=== PATIENT | male | born 1960 | race Caucasian/White ===

== ENCOUNTER 2018-03-07 14:58 | Emergency (ER) | payer MEDICAID ==
--- NOTE | 2018-03-07 15:30 | Emergency Department Record ---
History of Present Illness - General Chief Complaint: Difficulty Breathing Stated Complaint: THINKS HE HAS PNEUMONIA Time Seen by Provider: 03/07/18 15:16 Source: Patient Mode of Arrival: Ambulatory Limitations: No limitations - History of Present Illness Initial Comments: The patient is here due to R upper back and shoulder pain for 4-5 days. The pain is sharp and stabbing and is worse with ROM of the R shoulder. He denies any fever, cough, CP, SOB, or sputum production. The patient also denies any trauma or injury. The pain intermittently radiates from the trapezius area down the back of the R arm. There is no numbness in a glove distribution and there is no arm weakness. Onset/Timin -: Days(s) Radiation: Back Severity: Severe Severity scale (1-10): 8 Quality: Aching, Stabbing Consistency: Constant Associated Symptoms: Other Treatments Prior to Arrival: None - Related Data Home Oxygen Therapy: No Previous Rx's Medication Instructions Recorded Methylprednisolone [Medrol Dose 4 mg PO DAILY #15 tab.ds.pk 03/07/18 Pack] Methylprednisolone [Medrol Dose 4 mg PO DAILY 6 Days tab.ds.pk 03/07/18 Pack] Naproxen [Naprosyn] 500 mg PO BID #14 tablet. 03/07/18 Allergies Allergy/AdvReac Type Severity Reaction Status Date / Time No Known Drug Allergies Allergy Verified 03/07/18 15:14 Travel Screening - Travel/Exposure Within Last 30 Days Have you traveled within the last 30 days?: No - Additonal Travel Details Have you been exposed to anyone with a communicable illness?: No - Travel Symptoms Symptom Screening: None Review of Systems Constitutional: Denies: Chills, Fever Eyes: Denies: Eye discharge ENT: Denies: Congestion Respiratory: Denies: Cough, Dyspnea Past Medical History - SOCIAL HISTORY Smoking Status: Current every day smoker Alcohol Use: None Drug Use: Occasional Drug Use Detail:: Marijuana - RESPIRATORY Hx Respiratory Disorders: No - CARDIOVASCULAR Hx Cardio Disorders: No - NEURO Hx Neuro Disorders: No - GI Hx GI Disorders: No - Hx Genitourinary Disorders: Yes Hx Kidney Stones: Yes - ENDOCRINE Hx Endocrine Disorders: No - MUSCULOSKELETAL Hx Musculoskeletal Disorders: No - PSYCH Hx Psych Problems: No - HEMATOLOGY/ONCOLOGY Hx Hematology/Oncology Disorders: No Family Medical History Any Significant Family History?: No Physical Exam - General General Appearance: Alert, Oriented x3, Cooperative, No acute distress - Head Head exam: Atraumatic, Normocephalic, Normal inspection - Eye Eye exam: Normal appearance, PERRL - Neck Neck exam: Normal inspection, Full ROM. negative: Tenderness - Respiratory Respiratory exam: Normal lung sounds bilaterally. negative: Chest wall tenderness, Decreased breath sounds, Rales, Respiratory distress, Rhonchi, Wheezes - Cardiovascular Cardiovascular Exam: Regular rate, Normal rhythm, Normal heart sounds - GI/Abdominal GI/Abdominal exam: Soft, Normal bowel sounds. negative: Tenderness - Extremities Extremities exam: Normal inspection, Full ROM (There is reproducible pain with ROM of the R shoulder. The pain also does radiate down the back of the R arm. The patient also is feeling slight paresthesias at times over the posterior R arm and forearm.), Normal capillary refill. negative: Joint swelling, Tenderness - Back Back exam: Reports: Normal inspection. Denies: Paraspinal tenderness, Vertebral tenderness - Neurological Neurological exam: Alert, Motor sensory deficit (The motor exam to the R arm is 5/5 in all groups. The patient does have slight decreased sensation over the posterior R arm and forearm only. ), Normal gait, Oriented X3, Other (The R arm has normal pulses. He does have a neg Drift and Rhomberg exams.). negative: Abnormal gait, Altered Course Vital Signs 03/07/18 15:05 Pulse Rate 72 Respiratory 18 Rate Blood Pressure 120/86 Pulse Ox 94 L - Reevaluation(s) Reevaluation #1: I did discuss the lab and xray results with the patient. He is to take Naprosyn and a Medrol dose pack for pain and see a family doctor in 4-5 days for recheck. 03/07/18 16:27 03/07/18 16:42 Medical Decision Making - Data Complexity MDM Data: Labs Ordered and/or Reviewed, X-Ray Ordered and/or Reviewed - Lab Data Result diagrams: 03/07/18 15:39 03/07/18 15:39 - Radiology Data Radiology results: Report reviewed (CXR: Neg for any acute changes.) Disposition Disposition: Discharge Clinical Impression: Shoulder pain, right Qualifiers: Chronicity: acute Qualified Code(s): M25.511 - Pain in right shoulder Disposition: Home, Self-Care Condition: (2) Stable Instructions: Shoulder Pain (ED) Additional Instructions: Please take the Naprosyn and the Medrol dose pack for pain and try to limit the use of your R arm for 5 days. Please follow up with a family doctor for recheck in 4-5 days. Return to the ER for any worsening symptoms. Prescriptions: Methylprednisolone [Medrol Dose Pack] 4 mg PO DAILY 6 Days tab.ds.pk Methylprednisolone [Medrol Dose Pack] 4 mg PO DAILY #15 tab.ds.pk Naproxen [Naprosyn] 500 mg PO BID #14 tablet.dr Forms: Patient Portal Access Time of Disposition: 16:29 Quality - Quality Measures Quality Measures: N/A - Blood Pressure Screening View Details: Yes Does Patient Have Any of the Following: No Blood Pressure Classification: Pre-Hypertensive BP Reading Systolic Measurement: 133 Diastolic Measurement: 87 Screening for High Blood Pressure: < Pre-Hypertensive BP, F/U Documented > [ [id number]] Pre-Hypertensive Follow-up Interventions: Referral to alternative/primary care provider.
[2018-03-07 15:54] LABS: BASO % 0.4 % (0-6); EOS % 1.1 % (0-6); GRAN % 57.1 % (47-80); LYMPH % 32.9 % (16-45); MEAN CORPUSCULAR HEMOGLOBIN 30.6 pg (27-33); MEAN CORPUSCULAR HGB CONC 35.6 g/dl (32-36); MEAN PLATELET VOLUME 8.4 fl (7.4-10.4); MONO % 8.5 % (0-9); PLATELET COUNT 496 K/uL (130-400); RED BLOOD COUNT 5.23 M/uL (4.40-5.70); RED CELL DISTRIBUTION WIDTH 13.2 % (11.5-14.5)
[2018-03-07 16:04] LABS: BLOOD UREA NITROGEN 14 mg/dL (6-20); CREATININE 0.8 mg/dL (0.7-1.2); EST GLOMERULAR FILTRATION RATE > 60 mL/min
[2018-03-07 16:05] LABS: TOTAL PROTEIN 6.8 g/dL (6.6-8.7)
[2018-03-07 16:07] LABS: GLUCOSE,RANDOM 128 mg/dL (74-109)
[2018-03-07 16:10] LABS: ALB/GLOB RATIO 1.3 (1.1-1.8); ALBUMIN 3.9 g/dL (4.0-5.0); ALKALINE PHOSPHATASE 36 U/L (40-129); ALT/SGPT 24 U/L (<41); AST/SGOT 25 U/L (10.0-50.0)
[2018-03-07] MEDS ORDERED: KETOROLAC 30 MG/ML VIAL IVP ONE (16:15)
--- NOTE | 2018-03-09 13:05 | RADIOLOGY REPORT ---
DATE: 03/07/2018 at 3:44 p.m. EXAM: TWO-VIEW, CHEST. HISTORY: Right upper back pain. TECHNIQUE: PA and lateral views. COMPARISON: None. FINDINGS: Heart size is normal. No acute infiltrate is seen. No pleural effusion or pneumothorax evident. Hypertrophic spurring in the spine. There is mild wedging of the body of what is probably T7, presumably chronic; although old films would be useful to confirm. IMPRESSION: 1. NO ACUTE INFILTRATE EVIDENT. 2. PROMINENT SPURRING IN THE SPINE WITH MILD COMPRESSION OF A MID THORACIC VERTEBRAE, PRESUMABLY CHRONIC; ALTHOUGH COMPARISON WITH OLD FILMS WOULD BE USEFUL TO CONFIRM. JOB NUMBER: [id number] MTDD
== END 2018-03-07 16:57 | disposition home or self-care (01) ==
LOC: ER 14:58
DX: M25.511 Pain in right shoulder (principal); R06.00 Dyspnea, unspecified; F17.210 Nicotine dependence, cigarettes, uncomplicated
CPT/HCPCS: 99284 ×2; 96374; 85025; 80053; 71046; J1885

== ENCOUNTER 2018-06-14 10:58 | Day surgery (SDC) | payer MEDICAID ==
[2018-06-14] MEDS ORDERED: LIDOCAINE 2% MDV (20MG/ML) 20ML VIAL IV ONE (10:59)
[2018-06-14] MEDS ORDERED: PROPOFOL 10 MG/ML VIAL IV ONE (10:59)
--- NOTE | 2018-06-17 13:50 | Operative Note ---
DATE OF SURGERY: 06/14/2018 SURGEON: Finn Hernandez MD OPERATION: COLONOSCOPY. INDICATIONS: This is a 57-year-old male with average risk for colorectal cancer who presented for screening colonoscopy. POSTOPERATIVE DIAGNOSES: 1. Left-sided colonic diverticulosis. 2. An 8 mm sessile polyp in the descending colon that was removed by cold snare. 3. Grade 1 internal hemorrhoids. ANESTHESIA: Sedation is per Anesthesia. Pulse oximetry was monitored throughout the procedure to maintain O2 saturation of 90% or greater. Supplemental oxygen was administered via nasal cannula. Cardiac and vital signs were monitored throughout the duration of the procedure, and they were stable. The procedure of colonoscopy and risks and alternatives of the procedure, including the risk of bleeding and perforation, among others, were explained to the patient who voiced understanding and agreed to have the procedure done. Physical examination was performed, and the patient was found stable for sedation. PROCEDURE: The patient was placed in the left lateral position. Sedation was initiated. A digital rectal exam was performed and showed some mild external hemorrhoids with no palpable rectal masses. An Olympus PCF-180AL colonoscope was then inserted into the rectum under direct visualization. It was advanced to the cecum without difficulty. The ileocecal valve and appendiceal orifice were identified and photographed. The colonic mucosa was carefully examined upon introduction of the colonoscope. There were scattered diverticula noted in the sigmoid and descending colon. There were no other lesions noted. The ileocecal valve was intubated and terminal ileal mucosa was inspected for about 10 cm and it appeared normal. The colonoscope was then withdrawn while carefully examining the colonic mucosal surfaces. No other lesions were noted in the cecum, ascending colon, and transverse colon. In the descending colon was an 8 mm sessile polyp that was noted and was removed by cold snare. The rest of the colonic mucosa appeared normal. In the rectum, retroflexion was performed and grade 1 internal hemorrhoids were noted. The colonoscope was then withdrawn and the procedure was terminated. The patient tolerated the procedure well without any immediate complications. The patient remained with stable vital signs and was transferred to the recovery room. RECOMMENDATIONS: 1. The patient is to continue on a high-fiber diet. 2. The patient is to have a repeat colonoscopy for surveillance in 3 or 5 or 10 years depending on the histology of the polyp. Thank you for allowing me to participate in the care of your patient. CC: Bhumika LONG
== END 2018-06-14 13:00 | disposition home or self-care (01) ==
LOC: HOP 10:58
PROVIDERS: ATTEND Internal Medicine Gastroenterology
DX: Z12.11 Encounter for screening for malignant neoplasm of colon (principal); D12.4 Benign neoplasm of descending colon; K57.30 Diverticulosis of large intestine without perforation or abscess without bleeding; K64.0 First degree hemorrhoids